=== PATIENT | female | born 1985 | race Caucasian/White ===

== ENCOUNTER 2016-12-14 19:15 | Emergency (ER) | payer OTHER ==
[~2016-12-14] VITALS: Ht 162.6 cm; Wt 86.4 kg
[2016-12-14 19:20] VITALS: BP 130/93; PULSE 99; RESP 15; O2SAT 100
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
== END 2016-12-14 22:53 | disposition home or self-care (01) ==
LOC: SED 19:15
DX: S61.412A Laceration without foreign body of left hand, initial encounter (principal); W26.8XXA Contact with other sharp object(s), not elsewhere classified, initial encounter; Y93.89 Activity, other specified; Y92.89 Other specified places as the place of occurrence of the external cause; Y99.8 Other external cause status

== ENCOUNTER 2016-12-22 19:59 | Emergency (ER) | payer OTHER ==
[~2016-12-22] VITALS: Ht 162.6 cm; Wt 88.6 kg
[2016-12-22 20:16] VITALS: BP 138/90; PULSE 61; RESP 16; O2SAT 100
[2016-12-22 20:45] VITALS: BP 138/90; PULSE 61; RESP 16; O2SAT 100
== END 2016-12-22 20:46 | disposition home or self-care (01) ==
LOC: SED 19:59
DX: Z48.02 Encounter for removal of sutures (principal)